=== PATIENT | male | born 1965 | race Caucasian/White ===

== ENCOUNTER 2023-08-14 12:54 | Emergency (ER) | payer BC ==
[~2023-08-14] VITALS: Ht 180.3 cm; Wt 99.6 kg
[2023-08-14] MEDS ORDERED: TRAZODONE HCL50 MG PO (13:21)
[2023-08-14] MEDS ORDERED: RILUZOLE50 MG PO (13:21)
[2023-08-14] MEDS ORDERED: OMEPRAZOLE20 MG PO (13:22)
[2023-08-14] MEDS ORDERED: methylPREDNISolone SOD SUCC 125 MG/2 ML VIAL IV ONE (14:00)
[2023-08-14] MEDS ORDERED: FAMOTIDINE 20 MG/ 2 ML VIAL IV ONE (14:00)
[2023-08-14] MEDS ORDERED: diphenhydrAMINE HCL 50 MG/ML VIAL IV ONE (14:00)
[2023-08-14 14:25] LABS: BASOPHILS 0.6 % (0-2); EOSINOPHILS 2.2 % (0-6); HEMATOCRIT 47.2 % (35.0-50.0); HEMOGLOBIN 16.3 g/dL (12.0-18.0); LYMPHOCYTES 19.4 % (24-44); MCH 29.8 (27-36); MCHC 34.5 g/dl (30-36); MCV 86.6 fl (81-99); NEUTROPHILS 68.8 % (39-80); PLATELET COUNT 174 K/uL (140-440); RBC 5.45 M/ul (4.3-5.7); RDW 13.8 (10.5-15.0)
[2023-08-14 14:36] LABS: ALBUMIN 3.8 g/dL (3.4-5.0); ALBUMIN/GLOBULIN RATIO 1.12 (1.1-2.4); ANION GAP 11.8 (7-21); BILIRUBIN, TOTAL 0.7 ng/dL (0.2-1.0); BUN/CREATININE RATIO 10.41 (6.0-28.6); CALCIUM 7.9 mg/dL (8.5-10.1); CREATININE, SERUM 0.96 mg/dL (0.70-1.30); POTASSIUM 3.8 mmol/L (3.5-5.1); PROTEIN, TOTAL 7.2 g/dL (6.4-8.2)
[2023-08-14] MEDS ORDERED: PREDNISONE20 MG PO (15:31)
[2023-08-14] MEDS ORDERED: PEPCID20 MG PO (15:31)
[2023-08-14 15:43] VITALS: BP 132/96
== END 2023-08-14 15:43 | disposition home or self-care (01) ==
LOC: ED 12:54
PROVIDERS: Emergency Medicine
DX: L27.1 Localized skin eruption due to drugs and medicaments taken internally (principal); T50.995A Adverse effect of other drugs, medicaments and biological substances, initial encounter; Z88.0 Allergy status to penicillin; Z79.899 Other long term (current) drug therapy
CPT/HCPCS: 36415; 80053; 85025; 96374; 96375; 99283; J1200; J2919